=== PATIENT | female | born 1980 | race Caucasian/White ===

== ENCOUNTER 2023-09-02 13:19 | Emergency (ER) | payer SELFPAY ==
[2023-09-02] MEDS ORDERED: traMADol HCl 50 MG TAB ONE (14:23)
== END 2023-09-02 14:30 | disposition home or self-care (01) ==
LOC: ERS 13:19
DX: M54.9 Dorsalgia, unspecified (principal); F17.210 Nicotine dependence, cigarettes, uncomplicated
CPT/HCPCS: 99283